=== PATIENT | male | born 2000 | race Caucasian/White ===

== ENCOUNTER 2024-02-18 13:11 | Emergency (ER) | payer MEDICAID ==
[~2024-02-18] VITALS: Ht 172.7 cm; Wt 61.4 kg
[2024-02-18 13:16] VITALS: TEMP 98.4
[2024-02-18] MEDS: ACETAMINOPHEN 325 MG TABLET PO ONE (13:27)
[2024-02-18] MEDS: IBUPROFEN 600 MG TABLET PO ONE (13:27)
[2024-02-18] MEDS ORDERED: HYDR-4072 PO (14:25)
[2024-02-18] MEDS: OxyCODONE HCL 5 MG IR TABLET PO ONE (14:30)
[2024-02-18 15:26] VITALS: BP 118/74; PULSE 70; RESP 16; O2SAT 99
== END 2024-02-18 16:04 | disposition home or self-care (01) ==
LOC: EMS 13:11
DX: M25.522 Pain in left elbow (principal); W01.0XXA Fall on same level from slipping, tripping and stumbling without subsequent striking against object, initial encounter; Y93.01 Activity, walking, marching and hiking; Y92.89 Other specified places as the place of occurrence of the external cause; Y99.8 Other external cause status
CPT/HCPCS: 99284; 73030-TC; 73060-TC; 73070-TC; Z7502; Z7610